=== PATIENT | female | born 1940 | race Caucasian/White ===

== ENCOUNTER 2016-12-09 15:57 | Observation (INO) | payer BC ==
[~2016-12-09] VITALS: Ht 167.6 cm; Wt 65.3 kg
[2016-12-09] MEDS ORDERED: CARB-157 PO (17:03)
[2016-12-09] MEDS ORDERED: CHOL100027 PO (17:03)
[2016-12-09] MEDS ORDERED: MULT-513 PO (17:03)
--- NOTE | 2016-12-09 17:30 | DIAGNOSTIC IMAGING REPORT ---
SINGLE VIEW CHEST CLINICAL HISTORY: Generalized weakness. FINDINGS: An AP, portable, upright chest radiograph is obtained. No prior studies are available for comparison at the time of dictation. The examination is degraded by portable technique and patient rotation. The cardiomediastinal silhouette is unremarkable. Surgical clips project over the right mediastinum. Nonspecific interstitial thickening is noted. There is minimal left basilar atelectasis. No airspace consolidation or pleural effusion is seen. No pneumothorax is identified. The skeletal structures are osteopenic. Degenerative change and moderate S-shaped thoracolumbar scoliosis are noted in the spine. IMPRESSION: No acute cardiopulmonary abnormality. Electronically signed by: Ghassan Joseph M.D. 12/09/2016 5:29 PM Dictated Date/Time: 12/09/2016 5:28 PM
[2016-12-09 18:09] LABS: URINE APPEARANCE CLEAR (CLEAR); URINE BILIRUBIN NEG (NEG); URINE COLOR YELLOW; URINE NITRITE NEG (NEG); URINE SPECIFIC GRAVITY 1.007 (1.000-1.030); UROBILINOGEN NEG (NEG)
[2016-12-09 18:10] LABS: BASO % 0.5 %; BASO ABS # 0.03 K/uL (0-0.2); COMPLETE YES; EOS % 0.6 %; HEMATOCRIT 38.6 % (37-47); IG% 0.2 %; LYMPH % 26.7 %; LYMPH ABS # 1.75 K/uL (1.2-3.4); MEAN CELL VOLUME 88.1 fL (80-100); MEAN CORPUSCULAR HEMOGLOBIN 31.1 pg (25-34); MEAN CORPUSCULAR HGB CONC 35.2 g/dl (32-36); MEAN PLATELET VOLUME 9.2 fL (7.4-10.4); MONO % 8.4 %; NEUT % 63.6 %; PLATELET COUNT 271 K/uL (130-400); RED BLOOD COUNT 4.38 M/uL (4.2-5.4); WHITE BLOOD COUNT 6.55 K/uL (4.8-10.8)
--- NOTE | 2016-12-09 18:18 | DIAGNOSTIC IMAGING REPORT ---
CT SCAN OF THE BRAIN WITHOUT IV CONTRAST CLINICAL HISTORY: Near syncope. COMPARISON STUDY: No priors. TECHNIQUE: Unenhanced axial CT scan of the brain is performed from the vertex to the skull base. CT DOSE: 537.48 mGy.cm FINDINGS: Brain parenchyma: There are age-related involutional changes noting mild subcortical and periventricular microangiopathic change. There is no hemorrhage, mass effect, or evidence of acute territorial ischemia by CT criteria. Arreguin-white matter is preserved. No extra-axial fluid collection is seen. Ventricles, sulci, cisterns: Prominent secondary to involutional change. Intracranial vasculature: There is atherosclerotic calcification of the cavernous carotid and vertebral arteries. Calvarium: Unremarkable. Sinuses and mastoids: The visualized paranasal sinuses are clear. The mastoid air cells are well pneumatized. Orbits: The bony orbits are grossly intact. There are bilateral ocular lens implants. IMPRESSION: There is no hemorrhage, mass effect, or evidence of acute territorial ischemia by CT criteria. Electronically signed by: Ghassan Joseph M.D. 12/09/2016 6:17 PM Dictated Date/Time: 12/09/2016 6:15 PM
[2016-12-09 18:32] LABS: PARTIAL THROMBOPLASTIN RATIO 1.1; PROTHROMBIN TIME (PATIENT) 10.5 SECONDS (9.0-12.0)
[2016-12-09 18:38] LABS: ALT/SGPT 15 U/L (12-78); AST/SGOT 15 U/L (15-37); BLOOD UREA NITROGEN 21 mg/dl (7-18); BUN/CREATININE RATIO 10.4 (10-20); CARBON DIOXIDE 27 mmol/L (21-32); CHLORIDE 99 mmol/L (98-107); GLUCOSE 96 mg/dl (70-99); MAGNESIUM 2.4 mg/dl (1.8-2.4); POTASSIUM 4.1 mmol/L (3.5-5.1); SODIUM 136 mmol/L (136-145)
[2016-12-09 18:45] LABS: ALKALINE PHOSPHATASE 86 U/L (45-117); CKMB/CK RATIO 1.6 (0-3.0)
[2016-12-09 18:48] LABS: MANUAL MICROSCOPIC REQUIRED? NO; REVIEW REQ? NO
[2016-12-09] MEDS ORDERED: POLYETHYLENE (MIRALAX) 17 GM PACK PO PRN (20:30)
[2016-12-09] MEDS ORDERED: MAGNESIUM HYDROXIDE SUSP 30 ML UDC PO PRN (20:30)
[2016-12-09] MEDS ORDERED: ONDANSETRON INJ 2 MG/ML 2 ML VIAL IV PRN (20:30)
[2016-12-09] MEDS ORDERED: ALUMINUM/MAGNESIUM/SIMETH (MAALOX MAX) 30 ML UDC PO PRN (20:30)
[2016-12-09] MEDS ORDERED: ACETAMINOPHEN 325 MG TAB PO PRN (20:30)
[2016-12-09] MEDS ORDERED: IV FLUIDS COMPLETED PRN (21:15)
--- NOTE | 2016-12-09 21:19 | History and Physical ---
History & Physical Date & Time of Service: Dec 09, 2016 at 20:45 Chief Complaint: Nausea, Passed Out At [employer] Primary Care Physician: René Boothe MD History of Present Illness Source: patient 76 y/o F w/Hx Parkinson's. [place] 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 She was not reported to lose consciousness or exhibit any seizure-like activity. The pt does not recall being unresponsive but does state that she felt acutely weak. She states that she improved after regaining her bearings and drinking a glass of water. Earlier in the day she was at her gym and had exercised for 45 minutes. She feels she did not drink enough water throughout the day. She denies CP or palpitations prior to becoming unresponsive. She denies previous episodes of syncope. Initial labs reveal a creatinine of 2.0. Records from [facility] in [place] indicate that her creatinine was 0.8 in 2014. Past Medical/Surgical History Medical Problems: (1) Lung cancer Status: Resolved (2) Parkinsonism Status: Chronic Surgical Problems: (1) Hx of pneumonectomy Status: Resolved Family History Cancer Diabetes mellitus Heart disease Hypertension Lung disease Father had an OK age 78 Mother had a CVA age 87 Social History Recently relocated to live with her sisters. Does not smoke - rarely drinks - exercises regularly Smoking Status: Never Smoker Allergies Coded Allergies: No Known Allergies (Unverified , 12/09/16) Home Medications Scheduled Carbidopa/Levodopa (Sinemet 10MG/100MG), 1 TAB PO QID Cholecalciferol (Vitamin D 1000 Unit), 1,000 INTER.UNIT PO DAILY Multivitamins/Minerals (Mvi With Minerals), 1 TAB PO DAILY Review of Systems Constitutional: No chills, No fever, No sweats Eyes: No eye pain, No worsening of vision ENT: No hearing loss, No nasal symptoms, No unusual epistaxis Respiratory: No cough, No sputum, No wheezing Cardiovascular: No PND, No chest pain, No orthopnea Abdomen: No nausea, No pain, No vomiting Musculoskeletal: No joint pain, No muscle pain Genitourinary - Female: No dysuria, No urinary frequency, No urinary urgency Neurologic: + memory loss, + problem reported (Unresponsive for a brief period) , + weakness, No paralysis Endocrine: No fatigue Hematologic / Lymphatic: No abnormal bleeding/bruising Integumentary: No rash Allergic / Immunologic: No environmental allergies Physical Exam Vital Signs Date Time Temp Pulse Resp B/P Pulse Ox O2 Delivery O2 Flow Rate FiO2 12/09/16 17:33 86 12/09/16 17:23 97 Room Air 12/09/16 17:23 81 165/84 84 161/97 82 109/80 12/09/16 16:06 36.6 86 16 127/85 98 Room Air General Appearance: WD/WN, no apparent distress Head: normocephalic, atraumatic Eyes: normal inspection, PERRL, EOMI ENT: normal ENT inspection, pharynx normal Neck: supple, no JVD Respiratory/Chest: chest non-tender, lungs clear, normal breath sounds, no respiratory distress, no accessory muscle use Cardiovascular: regular rate, rhythm, no edema, no gallop Abdomen/GI: normal bowel sounds, non tender, soft Back: normal inspection, no CVA tenderness, no muscle spasm Extremities/Musculoskelatal: normal inspection, no calf tenderness, normal capillary refill Neurologic/Psych: special agent in charge II-XII nml as tested, no motor/sensory deficits, alert, normal mood/affect, normal reflexes, oriented x 3, + pertinent finding (She is slightly stiff but does not exhibit ) Skin: normal color, warm/dry, no rash Diagnostics Laboratory Results Results Past 24 Hours Test 12/09/16 17:53 12/09/16 17:55 Range/Units White Blood Count 6.55 4.8-10.8 K/uL Red Blood Count 4.38 4.2-5.4 M/uL Hemoglobin 13.6 12.0-16.0 g/dL Hematocrit 38.6 37-47 % Mean Corpuscular Volume 88.1 80-100 fL Mean Corpuscular Hemoglobin 31.1 25-34 pg Mean Corpuscular Hemoglobin Concent 35.2 32-36 g/dl Platelet Count 271 130-400 K/uL Mean Platelet Volume 9.2 7.4-10.4 fL Neutrophils (%) (Auto) 63.6 % Lymphocytes (%) (Auto) 26.7 % Monocytes (%) (Auto) 8.4 % Eosinophils (%) (Auto) 0.6 % Basophils (%) (Auto) 0.5 % Neutrophils # (Auto) 4.17 1.4-6.5 K/uL Lymphocytes # (Auto) 1.75 1.2-3.4 K/uL Monocytes # (Auto) 0.55 0.11-0.59 K/uL Eosinophils # (Auto) 0.04 0-0.5 K/uL Basophils # (Auto) 0.03 0-0.2 K/uL RDW Standard Deviation 42.4 36.4-46.3 fL RDW Coefficient of Variation 13.0 11.5-14.5 % Immature Granulocyte % (Auto) 0.2 % Immature Granulocyte # (Auto) 0.01 0.00-0.02 K/uL Prothrombin Time 10.5 9.0-12.0 SECONDS Prothromb Time International Ratio 1.0 0.9-1.1 Activated Partial Thromboplast Time 28.5 21.0-31.0 SECONDS Partial Thromboplastin Ratio 1.1 Sodium Level 136 136-145 mmol/L Potassium Level 4.1 3.5-5.1 mmol/L Chloride Level 99 98-107 mmol/L Carbon Dioxide Level 27 21-32 mmol/L Anion Gap 10.0 3-11 mmol/L Blood Urea Nitrogen 21 7-18 mg/dl Creatinine 2.00 0.60-1.20 mg/dl Est Creatinine Clear Calc Drug Dose 22.0 ml/min Estimated GFR () 27.2 Estimated GFR (Non- 23.5 BUN/Creatinine Ratio 10.4 10-20 Random Glucose 96 70-99 mg/dl Calcium Level 9.0 8.5-10.1 mg/dl Magnesium Level 2.4 1.8-2.4 mg/dl Total Bilirubin 0.4 0.2-1 mg/dl Direct Bilirubin 0.1 0-0.2 mg/dl Aspartate Amino Transf (AST/SGOT) 15 15-37 U/L Alanine Aminotransferase (ALT/SGPT) 15 12-78 U/L Alkaline Phosphatase 86 45-117 U/L Total Creatine Kinase 90 26-192 U/L Creatine Kinase MB 1.4 0.5-3.6 ng/ml Creatine Kinase MB Ratio 1.6 0-3.0 Troponin I < 0.015 0-0.045 ng/ml Total Protein 7.6 6.4-8.2 gm/dl Albumin 3.9 3.4-5.0 gm/dl Lipase 188 73-393 U/L Thyroid Stimulating Hormone (TSH) 1.760 0.300-4.500 uIu/ml Urine Color YELLOW Urine Appearance CLEAR CLEAR Urine pH 7.0 4.5-7.5 Urine Specific Beason 1.007 1.000-1.030 Urine Protein NEG NEG Urine Glucose (UA) NEG NEG Urine Ketones NEG NEG Urine Occult Blood NEG NEG Urine Nitrite NEG NEG Urine Bilirubin NEG NEG Urine Urobilinogen NEG NEG Urine Leukocyte Esterase SMALL NEG Urine WBC (Auto) 1-5 0-5 /hpf Urine RBC (Auto) 0-4 0-4 /hpf Urine Hyaline Casts (Auto) 0 0-5 /lpf Urine Epithelial Cells (Auto) 10-20 0-5 /lpf Urine Bacteria (Auto) NEG NEG Microbiology Results 12/09/16 Urine Culture, Received Pending EKG NSR Impression Assessment and Plan 76 y/o F w/Hx Parkinson's. [place]. 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 She was not reported to lose consciousness or exhibit any seizure-like activity. The pt does not recall being unresponsive but does state that she felt acutely weak. She states that she improved after regaining her bearings and drinking a glass of water. Initial labs reveal a creatinine of 2.0. Records from [facility] in [place] indicate that her creatinine was 0.8 in 2015. 1) Unresponsive - near-syncope - May be due to dehydration or related to Parkinson's and autonomic hypotension. The pt will be hydrated and we will monitor for arrhythmias overnight. We will check orthostatics and obtain an echo and carotid studies AM. 2) JUAN - no recent creatinine however creat was normal late 2014 - provide aggressive IVF and recheck BMP AM - consider nephrology consult if there is no improvement. 3) Parkinson's - continue Sinemet Full code - Heparin prophylaxis Total time for this admit including review of labs, meds, outside records - discussion with ER attending and pt - 35 min Level of Care Telemetry Resuscitation Status FULL RESUSCITATION VTE Prophylaxis VTE Risk Assessment Done? Y/N: Yes Risk Level: Moderate Given or contraindicated: Unfractionated heparin SQ
[2016-12-09 21:45] VITALS: BP 146/83; PULSE 75; TEMP 37.2; O2SAT 97; Ht 167.6 cm; Wt 65.3 kg
[2016-12-09] MEDS: CARBIDOPA/LEVODOPA 10/100MG TAB PO SCH (22:05)
[2016-12-09] MEDS: SODIUM CHLORIDE 0.9% 1000ML 1,000 ML IV SCH (22:06)
[2016-12-09] MEDS: HEPARIN SOD 5000 UNIT/0.5 ML CARP SQ SCH (22:10)
--- NOTE | 2016-12-09 22:32 | EMERGENCY ROOM VISIT NOTE ---
History Report prepared by Poli: Ruel Castro Under the Supervision of: Dr. Jaspal Daniel M.D. First contact with patient: 16:34 Chief Complaint: NEURO SYMPTOMS Stated Complaint: NAUSEA, PASSED OUT AT [employer] Nursing Triage Summary: Pt states, "I was at my hairdressers at noon and she thought I was having a mini stroke. I was nauseated, weak while sitting on the chair. I also have Parkinson's and see my neurologist on Mon." Pt denies h/a, changes in vision or speech. History of Present Illness The patient is a 76 year old female who presents to the Emergency Room with complaints of an episode of neurological symptoms that occurred around 1200 today. The patient feels fine now. She says that she was at the hairdressers, and she had an episode of weakness and nausea. Per the patient's family, the hairdresser said that the patient was dozing off, learning over, out of it, and staring into space. The hairdresser said the episode lasted a minute or so. The patient says this has never happened to her before. She does have Parkinson's and sees her neurologist in 4 days. She has a family history of strokes and factor 5. The patient has never been checked for factor 5. 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 The hairdresser did note that the patient smelled and perhaps had a bowel movement during the episode. Pt denies LOC, headache, fevers, chills, diaphoresis, visual changes, neck pain, chest pain, breathing difficulties, vomiting, abdominal pain, back pain, melena, hematochezia, urinary symptoms, numbness, lymphadenopathy, rash, or other complaints. Source of History: patient, family Onset: 1200 today Position: other (global - neurological symptoms) Symptom Intensity: lasted 1 minute Timing: other (episode) Associated Symptoms: + nausea, + weakness Note: Associated symptoms: Dozed off, leaned over, out of it, staring into space during episode. May have had loss of bowel control during episode. Review of Systems See HPI for pertinent positives and negatives. A total of ten systems were reviewed and were otherwise negative. Past Medical & Surgical Medical Problems: (1) JUAN (acute kidney injury) (2) Lung cancer (3) Parkinsonism (4) Syncope Surgical Problems: (1) Hx of pneumonectomy Family History Cancer Diabetes mellitus Heart disease Hypertension Lung disease Social History Smoking Status: Never Smoker Alcohol Use: none Occupation Status: retired Current/Historical Medications Scheduled Carbidopa/Levodopa (Sinemet 10MG/100MG), 1 TAB PO QID Cholecalciferol (Vitamin D 1000 Unit), 1,000 INTER.UNIT PO DAILY Multivitamins/Minerals (Mvi With Minerals), 1 TAB PO DAILY Allergies Coded Allergies: No Known Allergies (Unverified , 12/09/16) Physical Exam Vital Signs Date Time Temp Pulse Resp B/P Pulse Ox O2 Delivery O2 Flow Rate FiO2 12/09/16 19:00 78 16 157/90 97 12/09/16 17:33 86 12/09/16 17:23 97 Room Air 12/09/16 17:23 81 165/84 84 161/97 82 109/80 12/09/16 16:06 36.6 86 16 127/85 98 Room Air Physical Exam GENERAL: Awake, alert, well appearing, no distress HENT: Normocephalic, atraumatic. TM's normal. Oropharynx unremarkable. EYES: PERRL. EOMI. Normal conjunctiva. Sclera non-icteric. NECK: Supple. No nuchal rigidity. FROM. No JVD or bruit. RESPIRATORY: CTA CARDIAC: RRR. No murmur. ABDOMEN: Soft, non distended. No tenderness to palpation. No rebound or guarding. No masses. RECTAL: Deferred. MUSCULOSKELETAL: Unremarkable. No edema. No discoloration. Gross motor strength symmetric. NEURO: Cranial nerves 2-12 grossly intact. Normal sensorium. No sensory or motor deficits noted. Speech normal. No pronator drift. Normal rapid alternating movements. SKIN: No rash or jaundice noted. LYMPH: No adenopathy. Medical Decision & Procedures ER Provider Diagnostic Interpretation: X ray results as stated below per my interpretation and radiologist interpretation. Other radiology results as stated below per my review and radiologist interpretation SINGLE VIEW CHEST CLINICAL HISTORY: Generalized weakness. FINDINGS: An AP, portable, upright chest radiograph is obtained. No prior studies are available for comparison at the time of dictation. The examination is degraded by portable technique and patient rotation. The cardiomediastinal silhouette is unremarkable. Surgical clips project over the right mediastinum. Nonspecific interstitial thickening is noted. There is minimal left basilar atelectasis. No airspace consolidation or pleural effusion is seen. No pneumothorax is identified. The skeletal structures are osteopenic. Degenerative change and moderate S-shaped thoracolumbar scoliosis are noted in the spine. IMPRESSION: No acute cardiopulmonary abnormality. Electronically signed by: Ghassan Joseph M.D. 12/09/2016 5:29 PM Dictated Date/Time: 12/09/2016 5:[address] SCAN OF THE BRAIN WITHOUT IV CONTRAST CLINICAL HISTORY: Near syncope. COMPARISON STUDY: No priors. TECHNIQUE: Unenhanced axial CT scan of the brain is performed from the vertex to the skull base. CT DOSE: 537.48 mGy.cm FINDINGS: Brain parenchyma: There are age-related involutional changes noting mild subcortical and periventricular microangiopathic change. There is no hemorrhage, mass effect, or evidence of acute territorial ischemia by CT criteria. Arreguin-white matter is preserved. No extra-axial fluid collection is seen. Ventricles, sulci, cisterns: Prominent secondary to involutional change. Intracranial vasculature: There is atherosclerotic calcification of the cavernous carotid and vertebral arteries. Calvarium: Unremarkable. Sinuses and mastoids: The visualized paranasal sinuses are clear. The mastoid air cells are well pneumatized. Orbits: The bony orbits are grossly intact. There are bilateral ocular lens implants. IMPRESSION: There is no hemorrhage, mass effect, or evidence of acute territorial ischemia by CT criteria. Electronically signed by: Ghassan Joseph M.D. 12/09/2016 6:17 PM Dictated Date/Time: 12/09/2016 6:15 PM Laboratory Results 12/09/16 17:53 Red Blood Count 4.38, Mean Corpuscular Volume 88.1, Mean Corpuscular Hemoglobin 31.1, Mean Corpuscular Hemoglobin Concent 35.2, Mean Platelet Volume 9.2, Neutrophils (%) (Auto) 63.6, Lymphocytes (%) (Auto) 26.7, Monocytes (%) (Auto) 8.4, Eosinophils (%) (Auto) 0.6, Basophils (%) (Auto) 0.5, Neutrophils # (Auto) 4.17, Lymphocytes # (Auto) 1.75, Monocytes # (Auto) 0.55, Eosinophils # (Auto) 0.04, Basophils # (Auto) 0.03 12/09/16 17:53 Test 12/09/16 17:53 12/09/16 17:55 White Blood Count 6.55 K/uL (4.8-10.8) Red Blood Count 4.38 M/uL (4.2-5.4) Hemoglobin 13.6 g/dL (12.0-16.0) Hematocrit 38.6 % (37-47) Mean Corpuscular Volume 88.1 fL (80-100) Mean Corpuscular Hemoglobin 31.1 pg (25-34) Mean Corpuscular Hemoglobin Concent 35.2 g/dl (32-36) Platelet Count 271 K/uL (130-400) Mean Platelet Volume 9.2 fL (7.4-10.4) Neutrophils (%) (Auto) 63.6 % Lymphocytes (%) (Auto) 26.7 % Monocytes (%) (Auto) 8.4 % Eosinophils (%) (Auto) 0.6 % Basophils (%) (Auto) 0.5 % Neutrophils # (Auto) 4.17 K/uL (1.4-6.5) Lymphocytes # (Auto) 1.75 K/uL (1.2-3.4) Monocytes # (Auto) 0.55 K/uL (0.11-0.59) Eosinophils # (Auto) 0.04 K/uL (0-0.5) Basophils # (Auto) 0.03 K/uL (0-0.2) RDW Standard Deviation 42.4 fL (36.4-46.3) RDW Coefficient of Variation 13.0 % (11.5-14.5) Immature Granulocyte % (Auto) 0.2 % Immature Granulocyte # (Auto) 0.01 K/uL (0.00-0.02) Prothrombin Time 10.5 SECONDS (9.0-12.0) Prothromb Time International Ratio 1.0 (0.9-1.1) Activated Partial Thromboplast Time 28.5 SECONDS (21.0-31.0) Partial Thromboplastin Ratio 1.1 Anion Gap 10.0 mmol/L (3-11) Est Creatinine Clear Calc Drug Dose 22.0 ml/min Estimated GFR () 27.2 Estimated GFR (Non- 23.5 BUN/Creatinine Ratio 10.4 (10-20) Calcium Level 9.0 mg/dl (8.5-10.1) Magnesium Level 2.4 mg/dl (1.8-2.4) Total Bilirubin 0.4 mg/dl (0.2-1) Direct Bilirubin 0.1 mg/dl (0-0.2) Aspartate Amino Transf (AST/SGOT) 15 U/L (15-37) Alanine Aminotransferase (ALT/SGPT) 15 U/L (12-78) Alkaline Phosphatase 86 U/L (45-117) Total Creatine Kinase 90 U/L (26-192) Creatine Kinase MB 1.4 ng/ml (0.5-3.6) Creatine Kinase MB Ratio 1.6 (0-3.0) Troponin I < 0.015 ng/ml (0-0.045) Total Protein 7.6 gm/dl (6.4-8.2) Albumin 3.9 gm/dl (3.4-5.0) Lipase 188 U/L (73-393) Thyroid Stimulating Hormone (TSH) 1.760 uIu/ml (0.300-4.500) Urine Color YELLOW Urine Appearance CLEAR (CLEAR) Urine pH 7.0 (4.5-7.5) Urine Specific Fouke 1.007 (1.000-1.030) Urine Protein NEG (NEG) Urine Glucose (UA) NEG (NEG) Urine Ketones NEG (NEG) Urine Occult Blood NEG (NEG) Urine Nitrite NEG (NEG) Urine Bilirubin NEG (NEG) Urine Urobilinogen NEG (NEG) Urine Leukocyte Esterase SMALL (NEG) Urine WBC (Auto) 1-5 /hpf (0-5) Urine RBC (Auto) 0-4 /hpf (0-4) Urine Hyaline Casts (Auto) 0 /lpf (0-5) Urine Epithelial Cells (Auto) 10-20 /lpf (0-5) Urine Bacteria (Auto) NEG (NEG) Laboratory results reviewed by me ECG Indication: nausea Rate (beats per minute): 79 Rhythm: normal sinus Findings: no acute ischemic change, no ectopy ED Course 1646: The patient was evaluated in room C10. A complete history and physical exam was performed. 1941: Upon reexamination, the patient was resting comfortably. I discussed the test results and treatment plan with her. I also discussed staying and the patient is okay with that due to her near-syncopal episode and given that her creatinine was 2. The patient will be evaluated for further management. 2001: I discussed the patient with Dr. Sandra schererist - he will evaluate the patient for further treatment. Medical Decision Triage Nursing notes reviewed. The patient's presentation and history were concerning for near syncope/altered mental status. Etiologies such as metabolic, infection, hypo/hyperglycemia, electrolyte abnormalities, cardiac sources, intracerebral event, toxicologic, neurologic, as well as others were entertained. The patient was evaluated. Clinically she was doing well. She is nonfocal on examination. CT of the head was negative. Chest x-ray was negative. ECG was unremarkable. The patient had an unremarkable CBC. Chemistry panel was concerning as her creatinine was elevated at 2. The patient has no known history by her own account of renal issues. I did obtain old records from her last hospitalization. The patient had a normal creatinine at that time. Given the event and findings today, I discussed conservative management and having her stay in the hospital for cardiac monitoring and workup. The patient's family was very much in agreement. The patient then agreed to staying. I did consult with internal medicine and the patient was evaluated in the Emergency Room for further management. The chart was completed utilizing [employer] voice recognition software. Grammatical errors, random word insertions, pronoun errors, and incomplete sentences are an occasional consequence of this system due to software limitations, ambient noise, and hardware issues. Any formal questions or concerns about the content, text, or information contained within the body of this dictation should be directly addressed to the physician for clarification. Consults Time Called: 1949 Consulting Physician: Dr. Sandra VIDES hospitalist Returned Call: 2001 I discussed the patient with Dr. Sandra schererist - he will evaluate the patient for further treatment. Impression Primary Impression: Altered mental status Additional Impressions: Near syncope JUAN (acute kidney injury) Scribe Attestation The scribe's documentation has been prepared under my direction and personally reviewed by me in its entirety. I confirm that the note above accurately reflects all work, treatment, procedures, and medical decision making performed by me. Departure Information Dispostion Being Evaluated By Hospitalist Referrals René Boothe MD (PCP) Patient Instructions My [facility] Problem Qualifiers
[2016-12-10] VITALS (7 sets, daily range): BP systolic 98–155; BP diastolic 60–88; PULSE 70–81; TEMP 36.5–37; O2SAT 96–98
[2016-12-10] MEDS: SODIUM CHLORIDE 0.9% 1000ML 1,000 ML IV SCH (05:18)
[2016-12-10] MEDS: HEPARIN SOD 5000 UNIT/0.5 ML CARP SQ SCH ×2 (05:27→14:00)
[2016-12-10 06:50] LABS: BUN/CREATININE RATIO 22.5 (10-20); CALCIUM 8.6 mg/dl (8.5-10.1); CREATININE 0.8 mg/dl (0.60-1.20); MAGNESIUM 2.3 mg/dl (1.8-2.4)
[2016-12-10] MEDS: CARBIDOPA/LEVODOPA 10/100MG TAB PO SCH ×2 (09:00→13:00)
--- NOTE | 2016-12-10 09:09 | DIAGNOSTIC IMAGING REPORT ---
ULTRASOUND OF THE CAROTID ARTERIES CLINICAL HISTORY: Syncope. COMPARISON STUDY: No priors. TECHNIQUE: Real-time, grayscale, and color Doppler sonography of the carotid arteries is performed. Images are reviewed in the transverse and longitudinal planes. FINDINGS: Blood pressures were not assessed due to limb restrictions. The carotid arteries are patent bilaterally and demonstrate antegrade flow. There is minimal atherosclerotic plaque identified. Normal doppler arterial waveforms are seen throughout. Velocity measurements are listed below. Common carotid peak systolic velocity (cm/sec): RIGHT: 66 LEFT: 63 ICA proximal peak systolic velocity (cm/sec): RIGHT: 69 LEFT: 49 ICA mid peak systolic velocity (cm/sec): RIGHT: 75 LEFT: 70 ICA distal peak systolic velocity (cm/sec): RIGHT: 56 LEFT: 54 ICA/CC peak systolic ratio: RIGHT: 1.1 LEFT: 1.1 Antegrade flow was shown in the vertebral arteries. The external carotid arteries are patent. IMPRESSION: 1. There is no sonographic evidence of hemodynamically significant stenosis in the right or left carotid arterial system. 2. Antegrade flow is shown in the vertebral arteries. Electronically signed by: Ghassan Joseph M.D. 12/10/2016 9:08 AM Dictated Date/Time: 12/10/2016 9:06 AM
--- NOTE | 2016-12-10 14:41 | Discharge Instructions ---
Discharge Instructions Admission Reason for Admission: Nakul, Syncope (Gloria Reed PA-C) Discharge Discharge Diagnosis / Problem: Syncope, acute kidney injury (Gloria Reed PA-C) Discharge Goals Goal(s): Decrease discomfort, Improve function, Diagnostic testing, Therapeutic intervention (Gloria Reed PA-C) Activity Recommendations Activity Limitations: resume your previous activity . (Gloria Reed PA-C) Instructions / Follow-Up Instructions / Follow-Up You were admitted to the hospital for overnight observation following a brief episode of unresponsiveness. While in the hospital, you were found to be dehydrated, which resolved with some IV fluids. This likely contributed to your syncopal episode. It is important that you stay hydrated, especially as you increase your exercise regimen. You were also found to have orthostatic hypotension, in which your blood pressure drops significantly when you change from a sitting to standing position. This may be related to your Parkinson's disease or possibly your Parkinson's medication, both of which can cause orthostatic hypotension. A cardiac workup was performed which included an echocardiogram, or ultrasound of the heart, as well as imaging of your carotid arteries, cardiac monitoring, and lab work. This workup came back normal. You reported that yesterday you took a dose of carbidopa/levodopa without food. It seems that similar symptoms occur when you do not take this medication with food , so it is important that you do not take this on an empty stomach. Medications: *No changes have been made to your medications, you may resume them as prescribed. Please take your carbidopa/levodopa with food. Follow up: *Please follow-up with your primary care provider, Dr. Merritt, as scheduled next week. *Please follow-up with your neurologist, Dr. Harris, as scheduled next week. Please seek medical attention if you experience lightheadedness, loss of consciousness, sudden weakness, fall, nausea, vomiting, fevers, chills, sweats, chest pain, shortness of breath, or numbness/tingling. (Gloria Reed PA-C) Instructions / Follow-Up EXCEPTION TO THE ABOVE: Your ECHOCARDIOGRAM came back as with evidence of mild-moderate aortic stenosis (narrowing of the heart valve) and mild-moderate mitral valve regurgitation. The narrowing of your aortic valve may have contributed to you getting kidney failure more readily. Again, it is important that you stay hydrated throughout the day to keep your kidneys healthy. Your family doctor can order an ECHOCARDIOGRAM periodically to watch for worsening of the degree of narrowing of this heart valve over time. (Wandy Baker MD) Current Hospital Diet Patient's current hospital diet: Regular Diet (Gloria Reed PA-C) Discharge Diet Recommended Diet: Regular Diet (Gloria Reed PA-C) Pending Studies Studies pending at discharge: no (Gloria Reed PA-C) Medical Emergencies . Who to Call and When: Medical Emergencies: If at any time you feel your situation is an emergency, please call 911 immediately. . (Gloria Reed PA-C) Non-Emergent Contact Non-Emergency issues call your: Primary Care Provider, Neurologist Call Non-Emergent contact if: you have any medication questions . (Gloria Reed PA-C) Past History Medical & Surgical History: (1) Syncope (2) NAKUL (acute kidney injury) (3) Parkinsonism (Gloria Reed PA-C) . "Provider Documentation" section prepared by Gloria Reed. (Gloria Reed PA-C) VTE Core Measure Inpt VTE Proph given/why not?: Unfractionated heparin SQ (Gloria Reed PA-C)
--- NOTE | 2016-12-10 15:02 | Discharge Summary ---
Discharge Summary Date of Service Dec 10, 2016. (Gloria Reed .CARLOS) Discharge Summary Admission Date: Dec 09, 2016 at 20:27 Discharge Date: Dec 10, 2016 Discharge Disposition: Home Principal Diagnosis: Syncope, dehydration, orthostatic hypotension Problems/Secondary Diagnoses: Parkinson's disease Status: chronic History of lung cancer Status: resolved (Gloria Reed PA-C) Procedures: ECHO: * The left ventricle is normal in size. * Ejection Fraction = 65-70%. * Left ventricular systolic function is normal. * The left ventricular wall motion is normal. * There is mild concentric left ventricular hypertrophy. * Mild to moderate valvular aortic stenosis. * Trace aortic regurgitation. * There is mild to moderate mitral regurgitation. * There is trace tricuspid regurgitation. * Right ventricular systolic pressure is normal. (Wandy Baker MD) Medication Reconciliation Continued Medications: Carbidopa/Levodopa (Sinemet 10MG/100MG) Tab 1 TAB PO QID, TAB Cholecalciferol (Vitamin D 1000 Unit) 1,000 Unit Cap 1000 INTER.UNIT PO DAILY, CAP Multivitamins/Minerals (Mvi With Minerals) Tab 1 TAB PO DAILY, TAB Discharge Exam Patient reports feeling better, stating that her symptoms have completely resolved. She denies any lightheadedness, palpitations, chest pain, shortness of breath, nausea, vomiting, or weakness. The patient states that she must take her Sinemet medication with food and that in the past when she has not done so, within 30 minutes she starts to have similar symptoms. The patient had been running around yesterday and did not take her afternoon dose with food as usual. The syncopal episode and sudden onset of weakness did occur roughly 30 minutes following her Sinemet dose. The patient denies fevers, chills, sweats, chest pain, palpitations, claudication, cough, wheezing, shortness of breath, nausea, vomiting, abdominal pain, dysuria, hematuria, urinary retention , paralysis, weakness, new numbness and tingling. Review of Systems: Constitutional: No chills, No fever, No sweats Eyes: No diplopia, No eye pain, No worsening of vision ENT: No hearing loss, No sore throat, No trouble swallowing Respiratory: No cough, No shortness of breath, No wheezing Cardiovascular: No chest pain, No claudication, No palpitations Abdomen: No nausea, No pain, No vomiting Musculoskeletal: No calf pain, No joint pain, No muscle pain Genitourinary - Female: No dysuria, No hematuria, No urinary retention Neurologic: No numbness/tingling, No paralysis, No weakness Integumentary: No color change, No itch, No rash (Gloria Reed ., CARLOS) Hospital Course 76 y/o female with a history of Parkinson's disease and lung cancer s/p pneumonectomy. Patient was at her hairdresser when, per the hairdresser, she became briefly unresponsive and slouched over in her chair. Pt does not recall losing consciousness but states that she felt acutely weak. She states that she improved after regaining her bearings and drinking a glass of water. Patient was having gone to the gym to exercise for 45 minutes earlier in the day. She states she did not take her afternoon Sinemet dose with food as she usually does. Initial labs reveal a creatinine of 2.0. Records from [facility] in [place] indicate that her creatinine was 0.8 in 2015. Initial troponin and EKG negative. Syncopal episode/unresponsive--patient has h/o Parkinson's disease and is on Sinemet. Both could cause orthostatic hypotension. Patient also dehydrated with elevated creatinine above baseline which could contribute -Admitted to [facility] for observation for cardiac monitoring. No events on telemetry overnight, patient remained in sinus rhythm with heart rate in 70s -Positive orthostatics. Patient did have significant drop in BP when transitioning from sitting position to standing -Echocardiogram performed, grossly normal -Ultrasound of carotid arteries shows no significant stenosis -Repeat troponin negative Acute kidney injury/dehydration--resolved. Baseline creatinine appears to be around 0.8 -Creatinine on arrival was 2.0 -Patient received NSS at 125 cc/hr x 2 bags -Repeat creatinine was 0.8 Parkinson's disease -Continue Sinemet 10/100 mg PO QID DVT prophylaxis -Heparin 5000 units SC q8h Code Status -Level I, FULL RESUSCITATION STATUS Dispo -Patient medically cleared to be discharged home as cardiac workup normal. Episode appears to be secondary to orthostatic hypotension possibly also dehydration. Emphasized the importance of taking her Sinemet with food -Patient will follow up with PCP in 1 week and is scheduled to follow-up with her neurologist next week as well Total Time Spent: Greater than 30 minutes This includes examination of the patient, discharge planning, medication reconciliation, and communication with other providers. (Gloria Reed ., CARLOS) Discharge Instructions Please refer to the electronic Patient Visit Report (Discharge Instructions) for additional information. (Gloria Reed .CARLOS) Additional Copies To René Boothe MD Reviewed: Pt Seen/Exam by Me, DANIELA Notes (Wandy Baker MD) History Physician [employer] Supervision Note: I interviewed and examined the patient. Discussed with MALCOLM Reed and agree with findings and plan as documented in the note. Any exceptions or clarifications are listed here: Pt reports she has been feeling these similar symptoms for the last 1.5 years since she started on Sinemet but never to this degree. When it usually happens, she is at home and will put her feet up and sit down and feels better. Orthostatic BPs improved here with only a 38 point drop in systolic BP from lying to standing (previously was a 60 point drop on admission) after IVFs. No events on tele. ECHO actually ended up showing normal LV function, but with mild-mod and mild -mod MR which likely contributed to her acute kidney injury from dehydration and orthostatic hypotension. Vitals reviewed NAD, AAOx3 RRR +2/6 PALMER at [facility] CT[facility] breathing unlabored ABd soft NT ND +BS Ext no edema, scars from venous stripping present bilat legs Skin no rashes 76 yo female with presyncope, orthostatic hypotension, and JUAN, found ot have mild-mod contributing. -advised to stay hydrated especially with exercising -f/u with PCP -surveillance of aortic valve with annual ECHO or otherwise based on symptoms -consider altering dose or time of dosing of Sinemet with Neuro -ok for dc to home Documented By: Wandy Baker (Wandy Baker MD)
--- NOTE | 2016-12-10 15:06 | ECHOCARDIOGRAM REPORT ---
*NOTICE TO RECEIVING LIBERTARIAN AGENCY This information is strictly Confidential and protected under [place] law. [place] law prohibits you from making any further disclosure of this information unless further disclosure is expressly permitted by the written consent of the person to whom it pertains or is authorized by law. A general authorization for the release of medical or other information is not sufficient for this purpose. Hospital accepts no responsibility if the information is made available to any other person, INCLUDING THE PATIENT. Interpretation Summary * Name: YANA LAZARO I Study Date: 12/10/2016 09:26 AM BP: 104/63 mmHg * Patient Location: C.2T\S\S242\S\1 HR: 70 * : 1940 (M/d/yyyy) Gender: Female Height: 66 in * Age: 76 yrs Ethnicity: CA Weight: 149 lb * Ordering Physician: Carlos Flores * Performed By: Kathleen Yadav RDCS * * Reason For Study: Syncope * BSA: 1.8 m2 * -- Conclusions -- * The left ventricle is normal in size. * Ejection Fraction = 65-70%. * Left ventricular systolic function is normal. * The left ventricular wall motion is normal. * There is mild concentric left ventricular hypertrophy. * Mild to moderate valvular aortic stenosis. * Trace aortic regurgitation. * There is mild to moderate mitral regurgitation. * There is trace tricuspid regurgitation. * Right ventricular systolic pressure is normal. Procedure Details * A complete two-dimensional transthoracic echocardiogram was performed (2D, M-mode, Doppler and color flow Doppler). Left Ventricle * The left ventricle is normal in size. * There is mild concentric left ventricular hypertrophy. * Ejection Fraction = 65-70%. * Left ventricular systolic function is normal. * The left ventricular wall motion is normal. Right Ventricle * The right ventricle is normal in size and function. Atria * The left atrial size is normal. * Right atrial size is normal. * The interatrial septum is intact with no evidence for an atrial septal defect. Mitral Valve * The mitral valve is normal in structure and function. * There is mild to moderate mitral regurgitation. Tricuspid Valve * The tricuspid valve is normal in structure and function. * There is trace tricuspid regurgitation. * Right ventricular systolic pressure is normal. Aortic Valve * The aortic valve is trileaflet. * Mild to moderate valvular aortic stenosis. * Trace aortic regurgitation. Pulmonic Valve * The pulmonary valve is not well seen, but the Doppler examination is normal without significant regurgitation or stenosis. * There is no significant pulmonary regurgitation. Great Vessels * Ascending aorta of normal dimension * Aortic arch of normal dimension. * No obvious dissection could be visualized. * The pulmonary artery is not well visualized, but is probably normal size. Pericardium/Pleural * There is no pericardial effusion. Great Vessels * The inferior vena cava is mildly dilated. MMode 2D Measurements and Calculations IVSd 0.74 cm LVIDd 3.5 cm LVIDs 2.2 cm LVPWd 0.66 cm IVS/LVPW 1.1 FS 36.3 % EDV(Teich) 51.9 ml ESV(Teich) 17.1 ml EF(Teich) 67.0 % EDV(cubed) 43.9 ml ESV(cubed) 11.3 ml EF(cubed) 74.2 % LV mass(C)d 63.6 grams LV mass(C)dI 36.0 grams/m\S\2 CO(Teich) 2.7 l/min CI(Teich) 1.6 l/min/m\S\2 SV(Teich) 34.8 ml SI(Teich) 19.7 ml/m\S\2 CO(cubed) 2.6 l/min CI(cubed) 1.5 l/min/m\S\2 SV(cubed) 32.6 ml SI(cubed) 18.5 ml/m\S\2 Ao root diam 2.9 cm Ao root area 6.8 cm\S\2 ACS 1.1 cm LA dimension 2.5 cm asc Aorta Diam 2.9 cm LA/Ao 0.86 LVOT diam 2.0 cm LVOT area 3.0 cm\S\2 LVAd ap4 19.9 cm\S\2 LVLd ap4 7.5 cm EDV(MOD-sp4) 44.1 ml LVAs ap4 10.3 cm\S\2 LVLs ap4 6.0 cm ESV(MOD-sp4) 15.0 ml EF(MOD-sp4) 66.0 % LVAd ap2 19.0 cm\S\2 LVLd ap2 7.3 cm EDV(MOD-sp2) 42.1 ml LVAs ap2 9.6 cm\S\2 LVLs ap2 5.8 cm ESV(MOD-sp2) 14.1 ml EF(MOD-sp2) 66.5 % CO(MOD-sp4) 2.3 l/min CI(MOD-sp4) 1.3 l/min/m\S\2 SV(MOD-sp4) 29.1 ml SI(MOD-sp4) 16.5 ml/m\S\2 CO(MOD-sp2) 2.2 l/min CI(MOD-sp2) 1.3 l/min/m\S\2 SV(MOD-sp2) 28.0 ml SI(MOD-sp2) 15.9 ml/m\S\2 Doppler Measurements and Calculations MV E max angel 98.5 cm/sec MV A max angel 86.3 cm/sec MV E/A 1.1 MV dec time 0.19 sec Ao V2 max 192.7 cm/sec Ao max PG 14.9 mmHg Ao max PG (full) 12.5 mmHg Ao V2 mean 135.8 cm/sec Ao mean PG 8.6 mmHg Ao V2 VTI 40.6 cm SHERITA(V,A) 1.2 cm\S\2 SHERITA(V,D) 1.2 cm\S\2 AI max angel 464.2 cm/sec AI max PG 86.2 mmHg AI dec slope 305.6 cm/sec\S\2 AI P1/2t 444.9 msec LV V1 max PG 2.4 mmHg LV V1 max 77.6 cm/sec SV(Ao) 277.1 ml SI(Ao) 157.0 ml/m\S\2 PA V2 max 85.5 cm/sec PA max PG 2.9 mmHg PA acc slope 373.4 cm/sec\S\2 PA acc time 0.13 sec TR max angel 256.5 cm/sec PA pr(Accel) 18.8 mmHg
== END 2016-12-10 17:15 | disposition home or self-care (01) ==
LOC: ENRESERVDT → ENRESERVTM → C.EDB 16:00 → C.2T 20:27
PROVIDERS: ADMIT Internal Medicine; ATTEND Family Medicine
DX: R55 Syncope and collapse (principal); E86.0 Dehydration; I95.1 Orthostatic hypotension; G20 Parkinson's disease; Z85.118 Personal history of other malignant neoplasm of bronchus and lung; N17.9 Acute kidney failure, unspecified; Z83.3 Family history of diabetes mellitus; Z82.49 Family history of ischemic heart disease and other diseases of the circulatory system

== ENCOUNTER → 2017-11-30 | Outpatient (CLI) | payer BC ==
[~2017-11-30] MED LIST: CARB10TA5 PO; CHOL100027 PO; MULT-513 PO
== END | disposition home or self-care (01) ==
LOC: C.LABMFLN 08:15
PROVIDERS: ATTEND Family Medicine
DX: E78.5 Hyperlipidemia, unspecified (principal)

== ENCOUNTER → 2018-01-16 | Outpatient (CLI) | payer BC ==
--- NOTE | 2018-01-17 07:40 | MAMMOGRAPHY REPORT ---
BILATERAL DIGITAL SCREENING MAMMOGRAM TOMOSYNTHESIS WITH CAD: 01/16/2018 CLINICAL HISTORY: Routine screening examination. TECHNIQUE: Breast tomosynthesis in addition to standard 2D mammography was performed. Current study was also evaluated with a Computer Aided Detection (CAD) system. COMPARISON: Comparison is made to exams dated: 09/11/2015 mammogram, 01/17/2014 mammogram, 05/12/2012 ma mmogram, and 01/13/2011 mammogram. BREAST COMPOSITION: There are scattered areas of fibroglandular density in both breasts. FINDINGS: There are mild vascular calcifications in the breasts. The glandular pattern is similar to prior mammograms. No new suspicious mass, architectural distortion or cluster of microcalcification s is seen. IMPRESSION: ACR BI-RADS CATEGORY 1: NEGATIVE There is no mammographic evidence of malignancy. A 1 year screening mammogram is recommended. The pa tient will receive written notification of the results. Approximately 10% of breast cancers are not detected with mammography. A negative mammographic report should not delay biopsy if a clinically suggestive mass is present. April Norwood M.D. ay/:01/16/2018 15:52:41 Buck Swamper: Karmen LEWIS)(Karen), [facility] letter sent: Normal 1/2 BI-RADS Code: ACR BI-RADS Category 1: Negative
== END | disposition home or self-care (01) ==
LOC: C.MAMM 12:54
PROVIDERS: ATTEND Family Medicine
DX: Z12.31 Encounter for screening mammogram for malignant neoplasm of breast (principal)